=== PATIENT | female | born 1965 | race Two or more races ===

== ENCOUNTER 2023-02-11 05:07 | Emergency (ER) | payer OTHER ==
[~2023-02-11] VITALS: Ht 162.6 cm; Wt 74.8 kg
[2023-02-11] MEDS ORDERED: VALSARTAN40 MG (05:27)
[2023-02-11] MEDS ORDERED: SYNTHROID75 MCG (05:27)
[2023-02-11] MEDS ORDERED: XARELTO10 MG (05:27)
== END 2023-02-11 10:05 | disposition home or self-care (01) ==
LOC: ER 05:07
DX: R10.32 Left lower quadrant pain (principal)

== ENCOUNTER 2023-12-12 09:22 | Emergency (ER) | payer OTHER ==
[~2023-12-12] VITALS: Ht 162.6 cm; Wt 70.3 kg
[~2023-12-12 09:22] MED LIST: SYNTHROID75 MCG; VALSARTAN40 MG; XARELTO10 MG
[2023-12-12 10:59] LABS: HEMATOCRIT 38.4 % (36.0-45.00); MEAN CELL VOLUME 91.3 fL (80.00-100.00); MEAN CORPUSCULAR HGB CONC 33.9 g/dl (32.0-36.0); PLATELET COUNT 258 K/uL (150-450); RED BLOOD COUNT 4.21 M/uL (4.00-6.00); RED CELL DISTRIBUTION WIDTH 13.3 % (11.5-14.5)
[2023-12-12 11:32] LABS: URINE APPEARANCE Clear; URINE BILIRRUBIN Negative (NEGATIVE); URINE BLOOD Negative; URINE COLOR Yellow; URINE GLUCOSE Negative (NEGATIVE); URINE LEUKOCYTE Negative; URINE NITRATE Negative; URINE PROTEIN Negative (NEGATIVE); URINE UROBILINOGEN 0.2 E.U./dl
[2023-12-12 11:36] LABS: URINE EPITHELIAL CELLS 2.1 uL (0.0-38.8); URINE RBC 7.7 uL (0.0-20.8)
[2023-12-12 11:37] LABS: CALCIUM 9.5 mg/dL (8.5-10.1); CREATININE SERUM 0.93 mg/dL (0.55-1.02); GFR 61.49
[2023-12-12 11:46] LABS: URINE BACTERIA 2.5 uL (0.0-1933); URINE WBC 0.7 uL (0.0-23.2)
[2023-12-12] MEDS ORDERED: METRONIDAZOLE/SODIUM CHLORIDE 500 MG/100 ML PIGGYBACK IV STA (14:56)
[2023-12-12] MEDS ORDERED: CIPROFLOXACIN IN 5 % DEXTROSE 400 MG/200 ML PIGGYBAG IV STA (14:57)
== END 2023-12-12 16:41 | disposition home or self-care (01) ==
LOC: ER 09:23
PROVIDERS: General Practice
DX: R10.9 Unspecified abdominal pain (principal); I10 Essential (primary) hypertension; E03.9 Hypothyroidism, unspecified

== ENCOUNTER 2025-07-18 11:40 | Emergency (ER) | payer OTHER ==
[~2025-07-18] VITALS: Ht 162.6 cm; Wt 65.8 kg
[2025-07-18] MEDS ORDERED: METHYLPREDNISOLONE SOD SUCC 40 MG VIAL IM SCH (12:52)
[2025-07-18] MEDS ORDERED: ORPHENADRINE CITRATE 100 MG TABLET PO ONE (13:00)
[2025-07-18] MEDS ORDERED: KETOROLAC TROMETHAMINE 60 MG VIAL IM ONE (13:00)
== END 2025-07-18 15:00 | disposition home or self-care (01) ==
LOC: ER 11:40
DX: M54.50 Low back pain, unspecified (principal); E03.8 Other specified hypothyroidism; M51.379 Other intervertebral disc degeneration, lumbosacral region without mention of lumbar back pain or lower extremity pain